=== PATIENT | male | born 1995 | race Caucasian/White ===

== ENCOUNTER 2023-04-10 17:19 | Emergency (ER) | payer OTHER, MEDICAID, SELFPAY ==
[2023-04-10 17:25] VITALS: BP 142/90; PULSE 88; O2SAT 97
[2023-04-10 17:57] VITALS: BP 162/79; PULSE 86; RESP 18; TEMP 36.4; O2SAT 97; BMI 54.5
--- NOTE | 2023-04-10 17:57 | ED.GENADULT ---
HPI - General Adult General Chief complaint: Urogenital-Male Stated complaint: TESTICULAR PAIN Time Seen by Provider: 04/10/23 19:51 Source: patient Mode of arrival: EMS Limitations: no limitations History of Present Illness HPI narrative: Patient presents emergency room complaining of bilateral testicular pain. Patient states that today patient urinated, shortly after patient started having intense scrotal pressure. Patient states that since then, the pain has gradually been decreasing. Denies penile discharge Related Data Previous Rx's Medication Instructions Recorded ibuprofen 600 mg tablet 600 mg PO TID PRN fever or pain 04/10/23 #10 tabs Allergies Allergy/AdvReac Type Severity Reaction Status Date / Time heparin (porcine) Allergy Severe BLEEDING Verified 04/10/23 17:56 [HEPARIN,PORCINE] carbamazepine [From TEGRETOL] AdvReac Intermediate HIVES Verified 04/10/23 17:56 From BENADRYL Allergy Severe SHORTNESS Uncoded 06/22/20 16:29 OF BREATH From PHENERGAN Allergy Severe SHORTNESS Uncoded 06/22/20 16:29 OF BREATH Review of Systems Review of Systems: Constitutional : No Weight loss, No Fever, No Chills, No Night Sweats, No Fatigue, No Malaise ENT/Mouth : No Hearing loss, No Ear Pain, No Nasal Congestion, No Sinus Pain, No Hoarseness, No sore throat, No Rhinorrhea, No Swallowing Difficulty Eyes: No Eye Pain, No Swelling, No Redness, No Foreign Body, No Discharge, No Vision Changes Cardiovascular : No Chest Pain, No SOB, No Dyspnea on Exertion, No Orthopnea, No Edema, No Palpitations Respiratory : No Cough, No Sputum, No Wheezing, No Smoke Exposure, No Dyspnea Gastrointestinal : No Nausea, No Vomiting, No Diarrhea, No Constipation, No abdominal Pain, No Hematochezia, No Melena Genitourinary : Complaining of bilateral testicular pain, No Dysuria, No Urinary Frequency, No Hematuria, No Urinary Incontinence, No Urgency, No Flank Pain, No Urinary Flow Changes, No Hesitancy Musculoskeletal : No joint pain, No Myalgias, No Joint Swelling Skin : No Skin Lesions, No rash Neuro : No Weakness, No Numbness, No Paresthesias, No Loss of Consciousness, No Dizziness, No Headache Psych : No Anxiety/Panic, No Depression, No SI/HI/AH/VH, No Social Issues, Heme/Lymph: No Bruising, No Bleeding,No Lymphadenopathy Endocrine : No Polyuria, No Polydipsia, No Temperature Intolerance [facility] Past Medical History Medical History (Updated 04/10/23 @ 21:17 by Tatiana Reynolds MD) Autism Crohn's disease Major depression Schizophrenia Seizure disorder Social History Social History Advance Directives: No Advance Directives Information Provided: No Physical Exam ED Vital Signs: Vital Signs - 24 hr 04/10/23 17:57 04/10/23 20:05 Temperature 97.6 F Pulse Rate 86 78 Respiratory Rate 18 18 Blood Pressure 162/79 H 158/76 H Pulse Oximetry 97 97 Oxygen Delivery Method Room Air Room Air BMI result Body Mass Index 54.5 Const Other: Appearance: Alert. Oriented X3. No acute distress. Eyes: Pupils equal, round and reactive to light. ENT: Pharynx normal. Neck: Normal inspection. Neck supple. No lymph nodes noted. No crepitus CVS: Normal heart rate and rhythm. Pulses normal. Normal S1 and S2 Respiratory: No respiratory distress. Breath sounds normal. No Wheezing. No rales Abdomen: Soft and nontender. No rigidity. No distention. : Normal male genitalia, no testicular pain on palpation, no swelling, no discoloration Skin: Skin warm and dry. Normal skin color. Normal skin turgor. Extremities: No lower extremity edema. No Lacerations. No Rash Neuro: Oriented X 3. No motor deficit. No sensory deficit. Moving all extremities. No slurred speech. CN 2 through 12 grossly intact Psych: calm, cooperative, normal affect Course Course Course Narrative: This is an RME: Additional HPI, ROS, PE not included below will be deferred to primary provider. This is a [id number]-male, with a past medical history of crohns disease,seizures, autism, depression, and schizophrenia, presenting to the emergency department with complaint of bilateral testicular pain since ?. Reports pain happened suddenly after urinating. Pain has improved, but still aching. No dysuria, hematuria, urinary urgency or frequency. No testicular swelling. No recent trauma. Plan: US and UA Medical Decision Making Medical Decision Making MDM Narrative: -physical exam is normal, patient did not have any testicular/scrotal pain -I discussed the ultrasound with the patient, negative for testicular torsion bilaterally -interpretation of urinalysis, negative for UTI. Serology for gonorrhea and chlamydia pending. Patient denies any recent exposures to STDs. -my interpretation of ultrasound of the scrotum/testicles: No obvious abnormality Differential Diagnosis Differential Diagnoses: The differential diagnosis associated with the presentation includes (Contusion, testicular torsion, STD, epididymitis, UTI) Lab Data MDM Lab Attestation statement: I reviewed the patient's lab results. Labs: Lab Results 04/10/23 Range/Units 19:59 Urine Color Yellow Urine Appearance Cloudy Urine pH 7.5 (5.0-9.0) Ur Specific Cass 1.025 (1.005-1.025) Urine Protein Negative (Neg-Trace) mg/dL Urine Glucose (UA) Negative (Negative) mg/dL Urine Ketones Negative (Negative) mg/dL Urine Blood Negative (Negative) Urine Nitrite Negative (Negative) Ur Leukocyte Esterase Negative (Negative) Discharge Plan Discharge Clinical Impression: Pain in both testicles Patient Disposition: Home, Self-Care Instructions: Testicle Pain (ED) Additional Instructions: Please follow-up with your primary care physician tomorrow. If you have any worsening or new symptoms, please return to the emergency room or call 911 Prescriptions: New ibuprofen 600 mg tablet 600 mg PO TID PRN (Reason: fever or pain) Qty: 10 0RF
[2023-04-10 20:05] VITALS: BP 158/76; PULSE 78; RESP 18; O2SAT 97
[2023-04-10 21:20] VITALS: BP 154/86; PULSE 79; RESP 20; O2SAT 97
--- NOTE | 2023-04-10 21:30 | PC.NURSE ---
late entry- this rn medicated pt according to mar. chung. pt mother at bedside. pt ambulatory at discharge. pt calm and cooperative. pt provided with work note and discharge packet. pt verbalized understanding of discharge plan
== END 2023-04-10 21:30 | disposition home or self-care (01) ==
PROVIDERS: Emergency Provider Emergency Medicine
DX: N50.812 Left testicular pain (principal); N50.811 Right testicular pain; N50.3 Cyst of epididymis; R30.0 Dysuria; K50.90 Crohn's disease, unspecified, without complications; F84.0 Autistic disorder; F20.9 Schizophrenia, unspecified; F12.90 Cannabis use, unspecified, uncomplicated; Z79.899 Other long term (current) drug therapy
CPT/HCPCS: 0353U; 76870; 81003; 93975; 99284

== ENCOUNTER 2023-09-02 12:36 | Emergency (ER) | payer OTHER, SELFPAY ==
--- NOTE | ~2023-09-02 | US_ITS ---
EXAMINATION: US SCROTUM CLINICAL INFORMATION: Testicular pain. COMPARISON: None available. TECHNIQUE: A sonogram of the scrotum was performed assessing lopez-scale appearance and color Doppler flow. Spectral Doppler analysis of the arterial and venous flow were performed in the testes bilaterally. FINDINGS: RIGHT: Right testicle measures 3.7 x 2.6 x 2.0 cm, volume 15 mL. No focal testicular parenchymal lesions are visualized. Spectral Doppler analysis of the arterial and venous flow is normal in the right testis. Right epididymal head is normal in size. There is small right epididymal head cyst measuring 0.3 x 0.2 x 0.3 cm. No right hydrocele or varicocele is seen. Right epididymal Doppler flow is normal. LEFT: Left testicle measures 3.8 x 2.5 x 3.1 cm, volume 15 mL. No focal testicular parenchymal lesions are visualized. Spectral Doppler analysis of the arterial and venous flow is normal in the left testis. Left epididymal head is normal in size. There is a left epididymal head cysts measuring 0.4 x 0.3 x 0.3 cm. No left hydrocele or varicocele is seen. Left epididymal Doppler flow is normal. Incidental finding of mild thickening of the left scrotal wall compared to right side. 0.65 cm and the left compared to 0.40 cm on the right. US/US scrotum IMPRESSION: Bilateral epidural head cysts. Normal ultrasound of the testes.. Mild left scrotal wall thickening compared to right likely edema. Normal arterial and venous Doppler flow seen to both testes.
--- NOTE | ~2023-09-02 | US_ITS ---
EXAMINATION: US SCROTUM CLINICAL INFORMATION: Testicular pain. COMPARISON: None available. TECHNIQUE: A sonogram of the scrotum was performed assessing lopez-scale appearance and color Doppler flow. Spectral Doppler analysis of the arterial and venous flow were performed in the testes bilaterally. FINDINGS: RIGHT: Right testicle measures 3.7 x 2.6 x 2.0 cm, volume 15 mL. No focal testicular parenchymal lesions are visualized. Spectral Doppler analysis of the arterial and venous flow is normal in the right testis. Right epididymal head is normal in size. There is small right epididymal head cyst measuring 0.3 x 0.2 x 0.3 cm. No right hydrocele or varicocele is seen. Right epididymal Doppler flow is normal. LEFT: Left testicle measures 3.8 x 2.5 x 3.1 cm, volume 15 mL. No focal testicular parenchymal lesions are visualized. Spectral Doppler analysis of the arterial and venous flow is normal in the left testis. Left epididymal head is normal in size. There is a left epididymal head cysts measuring 0.4 x 0.3 x 0.3 cm. No left hydrocele or varicocele is seen. Left epididymal Doppler flow is normal. Incidental finding of mild thickening of the left scrotal wall compared to right side. 0.65 cm and the left compared to 0.40 cm on the right. US/US scrotum doppler IMPRESSION: Bilateral epidural head cysts. Normal ultrasound of the testes.. Mild left scrotal wall thickening compared to right likely edema. Normal arterial and venous Doppler flow seen to both testes.
[2023-09-02 12:38] VITALS: BP 161/101; PULSE 98; RESP 18; TEMP 37; O2SAT 99; BMI 55.2
--- NOTE | 2023-09-02 12:39 | ED_ITS ---
HPI - General Adult General Chief complaint: Urogenital-Male Stated complaint: Swollen Testicle Related Data Previous Rx's ?Medication ?Instructions ?Recorded ibuprofen 600 mg tablet 600 mg PO TID PRN fever or pain 04/10/23 #10 tabs Allergies Allergy/AdvReac Type Severity Reaction Status Date / Time heparin (porcine) Allergy Severe BLEEDING Verified 04/10/23 17:56 [HEPARIN,PORCINE] carbamazepine [From TEGRETOL] AdvReac Intermediate HIVES Verified 04/10/23 17:56 From BENADRYL Allergy Severe SHORTNESS Uncoded 06/22/20 16:29 OF BREATH From PHENERGAN Allergy Severe SHORTNESS Uncoded 06/22/20 16:29 OF BREATH PMFSH Past Medical History Medical History (Updated 04/08/24 @ 14:53 by BASSAM Mejia) Schizophrenia Major depression Autism Seizure disorder Crohn's disease Social History Social History Substance Use Type: Marijuana Advance Directives: No Physical Exam ED Vital Signs: BMI result Body Mass Index 55.2 Course Course Course Narrative: This is an RME: Additional HPI, ROS, PE not included below will be deferred to primary provider. 27-year-old male presents with 1 day of testicular pain and swelling. He says the scrotum is hard. He denies dysuria. No urinary frequency. No hematuria. He reports a dark lump in his left groin. Plan: ultrasound, labs Medical Decision Making Lab Data 09/02/23 13:49 09/02/23 13:49 Labs: Lab Results 09/02/23 Range/Units 13:49 WBC 10.5 (4.8-10.8) X10*3/uL RBC 4.46 L (4.60-5.80) X10*6/uL Hgb 13.5 L (14.0-18.0) g/dl Hct 39.7 L (42.0-52.0) % MCV 89.0 (80.0-98.0) fL MCH 30.3 (27.0-33.0) pg MCHC 34.0 (31.0-36.0) g/dl RDW 13.0 (11.0-16.0) % Plt Count 279 (160-400) X10*3/uL MPV 9.4 (9.4-12.4) fL Immature Gran % (Auto) 0.4 (0.0-0.4) % Neut % (Auto) 69.1 (45-73) % Lymph % (Auto) 21.7 (20-40) % Appling % (Auto) 7.7 (2-11) % Eos % (Auto) 0.6 (0-4) % Baso % (Auto) 0.5 (0-2) % Lymph # (Auto) 2.3 (1.2-4.9) X10*3/uL Appling # (Auto) 0.8 (0.1-1.2) X10*3/uL Eos # (Auto) 0.1 (0.0-0.4) X10*3/uL Baso # (Auto) 0.1 (0.0-0.2) X10*3/uL Abs Immat Gran (auto) 0.04 H (0.00-0.03) X10*3/uL Absolute Neuts (auto) 7.2 (2.0-8.3) x10*3/uL Absolute Nucleated RBC 0.000 (0.0-0.012) X10*3/uL Nucleated RBC % (auto) 0.0 (0.0-0.2) /100WBC Sodium 139 (135-145) mmol/L Potassium 4.2 (3.3-5.1) mmol/L Chloride 105 (96-108) mmol/L Carbon Dioxide 26 (22-29) mmol/L Anion Gap 12 (12-20) BUN 11 (9-16) mg/dL Creatinine 0.89 (0.5-1.4) mg/dL Estim Creat Clear Calc 208.1 Estimated GFR > 60 Random Glucose 96 (60-115) mg/dL Calcium 9.5 (8.4-10.2) mg/dL Total Bilirubin 0.3 (0.0-1.0) mg/dL AST 45 H (5-37) U/L ALT 51 H (0-40) U/L Alkaline Phosphatase 90 (39-117) U/L Total Protein 8.4 H (6.5-8.0) g/dL Albumin 4.4 (3.5-5.0) g/dL Discharge Plan Discharge Clinical Impression: Eloped from emergency department Patient Disposition: Elopement Prescriptions: No Action ibuprofen 600 mg tablet 600 mg PO TID PRN (Reason: fever or pain) Qty: 10 0RF Interventions: ED Discharge Assessment Last Done: 09/02/23 21:25 Discharge Date/Time: 09/02/23 21:25 Print Language: Persian
[2023-09-02 13:53] LABS: MANUAL DIFF FLAG NO
[2023-09-02 13:55] LABS: Basophils Absolute Auto 0.1 X10*3/uL (0.0-0.2); Basophils Percent Auto 0.5 % (0-2); Eosinophils Absolute Auto 0.1 X10*3/uL (0.0-0.4); Eosinophils Percent Auto 0.6 % (0-4); Hematocrit 39.7 % (42.0-52.0); Hemoglobin 13.5 g/dl (14.0-18.0); Imm Gran Abs Auto 0.04 X10*3/uL (0.00-0.03); Imm Gran Pct Auto 0.4 % (0.0-0.4); Lymphocytes Absolute Auto 2.3 X10*3/uL (1.2-4.9); Lymphocytes Percent Auto 21.7 % (20-40); Mean Corpuscular Hemoglobin 30.3 pg (27.0-33.0); Mean Platelet Volume 9.4 fL (9.4-12.4); Monocytes Absolute Auto 0.8 X10*3/uL (0.1-1.2); Monocytes Percent Auto 7.7 % (2-11); Neutrophils Absolute Auto 7.2 x10*3/uL (2.0-8.3); Neutrophils Percent Auto 69.1 % (45-73); Platelet Count 279 X10*3/uL (160-400); Red Blood Count 4.46 X10*6/uL (4.60-5.80); White Blood Count 10.5 X10*3/uL (4.8-10.8)
[2023-09-02 14:13] LABS: Alanine Aminotransferase 51 U/L (0-40); Albumin Level 4.4 g/dL (3.5-5.0); Alkaline Phosphatase 90 U/L (39-117); Anion Gap 12 (12-20); Aspartate Amino Transferase 45 U/L (5-37); Bilirubin Total 0.3 mg/dL (0.0-1.0); Blood Urea Nitrogen 11 mg/dL (9-16); Calcium 9.5 mg/dL (8.4-10.2); Carbon Dioxide 26 mmol/L (22-29); Chloride 105 mmol/L (96-108); Creatinine Clr Calc Pharmacy 208.1; Estimated Glomerular Filt Rate > 60; Glucose Random 96 mg/dL (60-115); Potassium 4.2 mmol/L (3.3-5.1); Sodium 139 mmol/L (135-145); Total Protein 8.4 g/dL (6.5-8.0)
[2023-09-02 19:10] VITALS: BP 137/66; PULSE 94; RESP 20; TEMP 37.2; O2SAT 94
--- NOTE | 2023-09-02 20:38 | PC.NURSE ---
patient was brought into the room and patients mother is at his bedside, she us upset over the wait and stated [facility] in [place] doesnt make people wait like this hospital makes people wait. This nurse stated that [facility] [place] nearly 5xs the size of this hospital and hospitals all across the [facility] are having lengthy waits currently. The mother continued to voice her dislike for the patients wait. The patient currently a&ox3, c/o scrotal pain and swelling, imaging was performed and patient continues to wait for a provider to garbage pick up man his case, call alicia within reach will continue to monitor.
--- NOTE | 2023-09-02 21:18 | PC.NURSE ---
patients mother again came out irate that they were waiting for a doctor to see her son, she stated that they have waited long enough. the mother was yellling at this nurse and this nurse asked the mother to not yell about something this nurse had no control of, this nurse had previously asked the [facility] provider to garbage pick up worker the patient which she was unable to do so. This nurse suggested to the mother that she call and speak with administration about her experience as I had advocated for this patient to be seen. This patient was brought as a 3 from the into [facility] so they could get seen quicker which did not happen. The patient got dressed and began yelling he was going to break the door down in azerbaijani. A tech who was fluent in azerbaijani opened the side door for the patient to leave so he did not cause destruction to the property. The patient and mother left this nurse will let the charge nurse know.
== END 2023-09-02 21:25 | disposition left against medical advice (07) ==
PROVIDERS: Physician Assistant; Emergency Provider Emergency Medicine; PCP Family Medicine
DX: N50.812 Left testicular pain (principal); N50.811 Right testicular pain; Z53.21 Procedure and treatment not carried out due to patient leaving prior to being seen by health care provider
CPT/HCPCS: 36415; 76870; 80053; 85025; 93975; 99283; 99284

== ENCOUNTER 2025-05-09 22:00 | Emergency (ER) | payer OTHER, SELFPAY ==
[2025-05-09 22:11] VITALS: BP 144/69; PULSE 81; RESP 17; TEMP 36.3; O2SAT 94; BMI 51.9
== END 2025-05-10 04:12 | disposition left against medical advice (07) ==
LOC: HO.ED 05-10 04:12
PROVIDERS: Emergency Provider Emergency Medicine; PCP Family Medicine
DX: S61.012A Laceration without foreign body of left thumb without damage to nail, initial encounter (principal); W26.8XXA Contact with other sharp object(s), not elsewhere classified, initial encounter; Y93.89 Activity, other specified; Y92.89 Other specified places as the place of occurrence of the external cause; Y99.8 Other external cause status
CPT/HCPCS: 99281